=== PATIENT | male | born 1990 | race Caucasian/White ===

== ENCOUNTER 2016-06-14 11:34 | Emergency (ER) | payer OTHER ==
[~2016-06-14] VITALS: Ht 180.3 cm; Wt 120.2 kg
--- NOTE | 2016-06-14 12:11 | ED SYNCOPE COMPLAINT ---
History of Present Illness General Chief Complaint: Syncope and Near-Syncope Stated Complaint: FALL WEDNESDAY +LOC BRUSING TO FACE Source: patient Exam Limitations: no limitations Vital Signs & Intake/Output Vital Signs & Intake/Output Vital Signs Date Time Temp Pulse Resp B/P Pulse O2 O2 Flow FiO2 Ox Delivery Rate 06/14 1347 97.1 52 20 120/60 96 Room Air 06/14 1139 97.0 52 16 123/77 95 Allergies Coded Allergies: amoxicillin (HIVES 06/14/16) Reconcile Medications No Known Home Medications Triage Note: PT STATES WEDNESDAY NIGHT HE WAS OUT TO EAT AND STARTED HAVING A PANIC ATTACK. PT STATES HE WENT OUTSIDE TO GET SOME AIR AND HE PASSED OUT AND HIT HIS HEAD ON CONCRETE. PT WITH BRUISING TO RIGHT EYE AND ABRASIONS TO NOSE AND RIGHT FH. PT STATES THIS HAS HAPPEND TO HIM DURING A PANIC ATTACK IN THE PAST LAST ONE BEING ABOUT 3 YEARS AGO. Triage Nurses Notes Reviewed? yes Timing: remote history Precipitating Factors: lightheadedness Context: fall/near fall Loss of Consciousness: unsure HPI: Patient is a 25-year-old male with history of panic attacks presenting to the emergency Department after syncopal episode 2 days ago. Patient reports that he was eating at a restaurant with friends, felt anxious and went outside. He reports that he started to hyperventilate and the next thing he knew he was waking up on the ground. There is blood next to him. He started developing black eyes and had several abrasions over his face. Unsure how long he was unconscious for. The follows unwitnessed. Patient denying any preceding symptoms prior to feeling anxious and breathing heavily. Denies any current nausea vomiting fevers or chills chest pain or shortness of breath. Patient reports mild pain over the nasal bridge. Denies any visual changes. No neck pain or back pain. No lower extremity pain. Patient was able to get up after falling and walk home. Denies drug use. He does report that he drinks socially at times. Denies drinking excessively at time of fall. Patient reports that he has had a total of 4 episodes of this in the past. Most recent being 3 years ago. Prior to that was 6 years before that in the first 2 episodes happened 4 months between each other. (OLVIN BLACK,MARISSA) Past History Travel History Traveled to [place] past 21 day No Medical History Any Pertinent Medical History? see below for history Surgical History Surgical History: non-contributory Psychosocial History What is your primary language French Tobacco Use: Never used ETOH Use: occasional use Illicit Drug Use: denies illicit drug use Family History Hx Contributory? No (MARISSA DEGROOT) Review of Systems Review of Systems Constitutional: Reports: no symptoms. Comments Review of systems: See HPI, All other systems negative. Constitutional, no chills fever or weight loss HEENT: No visual changes no sore throat no congestion Cardiovascular: No chest pain ,palpitation Skin, no jaundice no rashes Respiratory: No dyspnea cough sputum or hemoptysis GI: No nausea no vomiting : No dysuria No hematuria Muscle skeletal: no back pain, no neck pain, Neurologic: No numbness no headache Psych: pos stress and anxiety Heme/endocrine: No bruising no bleeding no polyuria or polydipsia Immunology: No splenectomy or history of AIDS (MARISSA DEGROOT) Physical Exam Physical Exam General Appearance: well developed/nourished, no apparent distress, alert, awake , comfortable Cranial Nerves: cn 2-12 intact Comments: Well-developed well-nourished person in no acute distress HEENT: extraocular motion intact, no nystagmus. Pupils equally round and reactive to light and accommodation. Nose is atraumatic. External auditory canal and Tympanic membranes clear. Pharynx normal. No swelling or edema. ecchymosis noted over both orbits, tender to palpation over nasal bridge, no septal hematoma. no hickman sign. no jaw pain to palpation. Neck: Supple, no lymphadenopathy, normal range of motion without pain or tenderness, no c spine tenderness. Back: Nontender, no CVA tenderness. Full range of motion Cardiovascular: Regular rate and rhythms no murmurs rubs or gallops, normal JVP Respiratory: Chest nontender. No respiratory distress.breath sounds clear to auscultation bilaterally Extremity: No edema, no calf tenderness to palpation, normal and equal pulses. Muscular strength is 5 out of 5 and oxygen is good director of transportation strength is equal and symmetric bilaterally. Neuro: Alert oriented x3, motor sensory normal, cranial nerves II through XII grossly intact. cerebellar testing unremarkable. Skin: Superficial abrasions noted over the nasal abrasion approximately 2 cm x 2 cm. Another 2 cm abrasion noted above the right eyebrow, no surrounding erythema. Mildly edematous over the nasal bridge. Otherwise skin is intact on the exposed areas. Psych: Mood and affect is normal, memory and judgment is normal. Core Measures ACS in differential dx? Yes CVA/TIA Diagnosis: No Severe Sepsis Present: No Septic Shock Present: No (OLVIN BLACK,MARISSA) Progress Differential Diagnosis: drug induced syncope, hyperventilation, orthostatic syncope, other valvular disease, pulmonary embolus, seizure, subarachnoid hem., TIA/CVA, hyperventilation, cardiac arrhythmia Plan of Care: Orders Procedure Date/time Status MISTAKE 06/14 123 Active URINE DRUG SCREEN FOR ER ONLY 06/14 123 Complete URINALYSIS 06/14 123 Complete TROPONIN LEVEL 06/14 1229 Complete PROLACTIN 06/14 123 Complete COMPREHENSIVE METABOLIC PANEL 06/14 123 Complete CBC WITHOUT DIFFERENTIAL 06/14 1229 Complete EKG 06/14 123 Active Laboratory Tests 06/14/16 1245: Urine Opiates Screen < 100.00, Methadone Screen < 40, Barbiturate Screen < 60, Ur Phencyclidine Scrn < 6.00, Amphetamines Screen < 100, U Benzodiazepines Scrn < 85, Urine Cocaine Screen < 50, Urine Cannabis Screen > 80.00 H, Urine Color YEL, Urine Clarity CLEAR, Urine pH 7.5, Ur Specific [place] 1.015, Urine Protein NEG, Urine Ketones NEG, Urine Nitrite NEG, Urine Bilirubin NEG, Urine Urobilinogen 0.2, Ur Leukocyte Esterase NEG, Ur Microscopic EXAM NOT REQUIRED, Urine Hemoglobin NEG, Urine Glucose NEG 06/14/16 1241: Anion Gap 10, Estimated GFR > 60, BUN/Creatinine Ratio 18.9, Glucose 80, Calcium 9.5, Total Bilirubin 0.8, AST 18, ALT 29, Alkaline Phosphatase 70, Troponin I < 0.01, Total Protein 6.9, Albumin 4.0, Globulin 2.9, Albumin/Globulin Ratio 1.4, Prolactin 10.7, CBC w Diff NO MAN DIFF REQ, RBC 5.13, MCV 84.2, MCH 28.7, RDW 13.1, MPV 9.7, Gran % 54.3, Lymphocytes % 32.0, Monocytes % 11.1 H, Eosinophils % 2.2, Basophils % 0.4, Absolute Granulocytes 3.4, Absolute Lymphocytes 2.0, Absolute Monocytes 0.7 H, Absolute Eosinophils 0.1, Absolute Basophils 0, PUBS MCHC 34.0 Diagnostic Imaging: Viewed by Me: Radiology Read, CT Scan. Discussed w/RAD: Radiology Read, CT Scan. Radiology Impression: PATIENT: KWAME MCKEON PRESENT AGE: 25 PATIENT ACCOUNT NO: [id number] : 91 LOCATION: [facility] ORDERING PHYSICIAN: MARISSA BLACK SERVICE DATE: 06/14/16 EXAM TYPE: CAT - CT CERV SPINE WO IV CONTRAST; CT HEAD WO IV CONTRAST; CT MAXILLOFACIAL W/O CON EXAMINATION: CT HEAD WITHOUT CONTRAST CT FACIAL BONES WITHOUT CONTRAST CT CERVICAL SPINE WITHOUT CONTRAST CLINICAL INFORMATION: 25-year-old man with fall and head injury. COMPARISON: None. TECHNIQUE: Imaging was performed from the skull base to vertex without intravenous administration of contrast. In addition , helical noncontrast CT imaging was acquired through the cervical spine and facial bones and source images were reviewed along with axial reconstructions and sagittal and coronal MPRs. DLP: 1513 mGy-cm FINDINGS: HEAD: No intracranial mass, hemorrhage, or midline shift is visualized. The ventricles and sulci are age-appropriate. No extra-axial collections are identified. FACIAL BONES: There are comminuted fractures of both nasal bones with some leftward displacement of the right nasal bone. There is some associated soft tissue swelling. The paranasal sinuses are well aerated. No significant dental disease is visualized. The orbits are unremarkable in appearance. CERVICAL SPINE: There is no evidence of acute cervical spine fracture. Vertebral bodies remain normal in height, intervertebral disc spaces are preserved, and alignment is anatomic. No pre- or paravertebral soft tissue abnormality is identified. Limited assessment of the lung apices is unremarkable. IMPRESSION: 1. No acute intracranial process. 2. No acute cervical spine fracture or traumatic subluxation. 3. Comminuted fractures of both nasal bones with mild displacement on the right side. DICTATED BY: DIMA GUTIERREZ MD DATE/TIME DICTATED:06/14/161327 BLOOD DONOR RECRUITER SUPERVISOR:ROSA DATE/TIME TRANSCRIBED:06/14/161327 CONFIDENTIAL, DO NOT COPY WITHOUT APPROPRIATE AUTHORIZATION. <Electronically signed in Other Vendor System> SIGNED BY: DIMA GUTIERREZ MD 06/14/16 9132 CXR Impression: mild cardiomegaly Initial ED EKG: sinus bradycardia at 47 bpm Comments: Patient declined anything for pain on arrival. Patient is alert and oriented 3 neurologically intact no focal deficits. Patient does have raccoon eyes and tenderness of the nasal bridge. Etiology of syncope is unclear same. Patient had full workup. Patient's orthostatics are negative on arrival. EKG shows bradycardia. Patient informed of all results and imaging study results. He does have nasal fracture. He'll follow-up with ear nose and throat. Spoke with Dr. Lira regarding patient's syncope episode, bradycardia and mild cardiomegaly. He feels that since the patient is young and otherwise healthy and asymptomatic at this time he can be followed up outpatient. He'll see him in the office and sent him for a Holter monitor. Patient advised to return for any worsening symptoms or concerns. Patient complaint. All questions answered. (MARISSA DEGROOT) Departure Departure Time of Disposition: 1343 Disposition: HOME OR SELF CARE Condition: Stable Clinical Impression Primary Impression: Syncope Qualifiers: Syncope type: unspecified Qualified Code: R55 - Syncope and collapse Secondary Impressions: Nasal fracture Qualifiers: Encounter type: initial encounter Fracture type: closed Qualified Code: S02.2XXA - Fracture of nasal bones, initial encounter for closed fracture Referrals: CHELSEA BONILLA,SUZY HERNANDEZ MD,DYLAN Sierra (PCP/Family) YUNIEL BONILLA,Doreen CURRY Additional Instructions: Follow-up with ear nose and throat call to make appointment. Apply bacitracin to affected area. Take Motrin and Tylenol as directed [id number] for aches or pains. Return for worsening symptoms or concerns. Departure Forms: Customer Survey General Discharge Information Prescriptions: Current Visit Scripts No Known Home Medications (MARISSA DEGROOT) PA/KELP CUTTER Co-Sign Statement Statement: ED Attending supervision documentation- [] I saw and evaluated the patient. I have also reviewed all the pertinent lab results and diagnostic results. I agree with the findings and the plan of care as documented in the PA's/KELP CUTTER's documentation. x I have reviewed the ED Record and agree with the PA's/KELP CUTTER's documentation. [] Additions or exceptions (if any) to the PAs/KELP CUTTER's note and plan are summarized below: [] (JEAN BONILLA,SUSANA)
[2016-06-14 12:53] LABS: ABSOLUTE BASOPHIL COUNT 0 /CUMM (0.0-0.2); ABSOLUTE EOSINOPHIL COUNT 0.1 /CUMM (0.0-0.7); ABSOLUTE GRANULOCYTE CT 3.4 /CUMM (1.4-6.5); ABSOLUTE MONOCYTE COUNT 0.7 /CUMM (0.10-0.60); BASOPHIL % 0.4 % (0.0-2.0); EOSINOPHIL % 2.2 % (0-5); GRANULOCYTE % 54.3 % (42.2-75.2); HEMATOCRIT 43.2 % (42-52); MEAN CORPUSCULAR HGB 28.7 PG (27.0-31.0); MEAN CORPUSCULAR VOLUME 84.2 FL (80.0-94.0); MEAN PLATELET VOLUME 9.7 FL (7.4-10.4); PLATELET COUNT 174 /CUMM (130-400); RBC DISTRIBUTION WIDTH 13.1 % (11.5-14.5); RED BLOOD CELL CT 5.13 /CUMM (4.70-6.10); WHITE BLOOD CELL COUNT 6.3 /CUMM (4.8-10.8)
--- NOTE | 2016-06-14 13:37 | CT SCAN REPORT ---
EXAMINATION: CT HEAD WITHOUT CONTRAST CT FACIAL BONES WITHOUT CONTRAST CT CERVICAL SPINE WITHOUT CONTRAST CLINICAL INFORMATION: 25-year-old man with fall and head injury. COMPARISON: None. TECHNIQUE: Imaging was performed from the skull base to vertex without intravenous administration of contrast. In addition, helical noncontrast CT imaging was acquired through the cervical spine and facial bones and source images were reviewed along with axial reconstructions and sagittal and coronal MPRs. DLP: 1513 mGy-cm FINDINGS: HEAD: No intracranial mass, hemorrhage, or midline shift is visualized. The ventricles and sulci are age-appropriate. No extra-axial collections are identified. FACIAL BONES: There are comminuted fractures of both nasal bones with some leftward displacement of the right nasal bone. There is some associated soft tissue swelling. The paranasal sinuses are well aerated. No significant dental disease is visualized. The orbits are unremarkable in appearance. CERVICAL SPINE: There is no evidence of acute cervical spine fracture. Vertebral bodies remain normal in height, intervertebral disc spaces are preserved, and alignment is anatomic. No pre- or paravertebral soft tissue abnormality is identified. Limited assessment of the lung apices is unremarkable. IMPRESSION: 1. No acute intracranial process. 2. No acute cervical spine fracture or traumatic subluxation. 3. Comminuted fractures of both nasal bones with mild displacement on the right side.
--- NOTE | 2016-06-14 13:40 | RADIOLOGY REPORT ---
EXAMINATION: XR CHEST CLINICAL INFORMATION: 25-year-old man with syncope. COMPARISON: None TECHNIQUE: 2 views of the chest were obtained. FINDINGS: The lungs are well expanded and clear, without evidence of focal consolidation, pneumothorax, or pulmonary edema. There is mild to moderate cardiomegaly. There are no pleural effusions. IMPRESSION: Mild to moderate cardiomegaly. No other radiographic evidence of an acute cardiac pulmonary process.
[2016-06-14 13:47] VITALS: BP 120/60
== END 2016-06-14 14:01 ==
LOC: ERH 11:34
PROVIDERS: Physician Assistant
DX: R55 Syncope and collapse (principal); S02.2XXA Fracture of nasal bones, initial encounter for closed fracture; W19.XXXA Unspecified fall, initial encounter
CPT/HCPCS: 80307; 81003; 93005; 93010